=== PATIENT | female | born 1980 | race Caucasian/White ===

== ENCOUNTER 2019-03-17 07:57 | Emergency (ER) | payer SELFPAY ==
[~2019-03-17] VITALS: Ht 172.7 cm; Wt 68.0 kg
[2019-03-17] MEDS ORDERED: IBUPROFEN 800MG TABLET PO ONE (11:30)
[2019-03-17 11:34] VITALS: BP 124/68
== END 2019-03-17 13:09 | disposition left against medical advice (07) ==
LOC: ER 08:41
DX: M79.641 Pain in right hand (principal); Z76.0 Encounter for issue of repeat prescription; V00.131A Fall from skateboard, initial encounter; Y93.89 Activity, other specified; Y92.89 Other specified places as the place of occurrence of the external cause
CPT/HCPCS: 81025; 99282